=== PATIENT | male | born 1995 | race Caucasian/White ===

== ENCOUNTER 2024-01-01 19:19 | Emergency (ER) | payer SELFPAY ==
[2024-01-01 19:56] LABS: Absolute Basophils 0.1 K/uL (0-0.5); Absolute Eosinophils 0.2 K/uL (0-0.5); Absolute Monocytes 0.7 K/uL (0.1-1.3); Absolute Neutrophil 4.5 K/uL (1.8-8.0); Basophils % 0.7 % (0-1.3); Eosinophils % 2.4 % (0-4.4); Hemoglobin 14.4 g/dL (13.6-17.9); MCH 27.3 pg (27.0-35.0); MCHC 32.8 g/dL (32.0-36.0); MCV 83.3 fL (80-100); MPV 8.1 fL (7.6-11.3); Neutrophils % 59.9 % (41.7-73.7); Nucleated Red Blood Cells % 0.1 % (0-0); Platelets 223 thou/uL (152-406); RBC Red Blood Cell Count 5.29 M/uL (4.33-5.43); Red Cell Distribution Width 13.9 % (12.1-15.2)
[2024-01-01] MEDS ORDERED: MAGNES/ALUMIN/SIMET 30ML UCUP ONE (20:06)
[2024-01-01] MEDS ORDERED: FAMOTIDINE 20 MG/2 ML VIAL IV ONE (20:06)
[2024-01-01] MEDS ORDERED: LIDOCAINE VISCOUS 2% 10ML ORAL SOLN ONE (20:06)
[2024-01-01 20:21] LABS: Albumin 3.9 g/dL (3.4-5.0); Albumin/Globulin Ratio 0.9 (1.1-1.8); Anion Gap 9.5 mEq/L (5.0-15.0); Bilirubin Total 0.5 mg/dL (0.2-1.0); Globulin 4.2 g/dL (2.3-3.5); Potassium 3.5 mEq/L (3.5-5.1); Protein, Total 8.1 g/dL (6.4-8.2); Troponin High Sensitivity 5.7 pg/mL (<58.9)
--- NOTE | 2024-01-01 20:31 | RAD REPORT ---
EXAM DESCRIPTION: US - Abdomen Exam Limited - 01/01/2024 8:03 pm CLINICAL HISTORY: ABD PAIN COMPARISON: No comparisons TECHNIQUE: Sonographic grayscale and color flow images of the right upper abdominal quadrant were o btained. FINDINGS: The gallbladder demonstrates no gallstones. No pericholecystic fluid or gallbladder wall t hickening. The common bile duct is normal measuring 1 mm. The liver demonstrates no findings of intrahepatic biliary dilatation. IMPRESSION: Unremarkable right upper quadrant ultrasound.
--- NOTE | 2024-01-01 21:03 | RAD REPORT ---
EXAM DESCRIPTION: Shefali Single View01/01/2024 8:26 pm CLINICAL HISTORY: CHEST PAIN COMPARISON: No comparisons TECHNIQUE: Portable AP view of the chest. FINDINGS: The lungs are clear. No pneumothorax or effusion. The cardiomediastinal contours are unre markable. IMPRESSION: No acute cardiopulmonary process.
--- NOTE | 2024-01-01 21:11 | EDPHYS ---
Physician Documentation [facility] Name: Harinder Farrell Age: 28 yrs Sex: Male : 1995 Arrival Date: 01/01/2024 Time: 19:19 Bed 20 Private MD: ED Physician Marimar House HPI: 12/31 19:56 This 28 yrs old Male presents to ER via Ambulatory with complaints of Chest Tightness, kb Abdominal Pain. 19:56 Pt is a 28 year old male who presents for chest and abd pain that has been intermittent kb for one week. States the pain started in epigastric area and radiated up through chest. Denies n/v/d, fever, shortness of breath. Historical: - Allergies: 19:33 No Known Allergies; tm6 - PMHx: 19:33 None; tm6 - PSHx: 19:33 None; tm6 - Immunization history:: Client reports having NOT received the Covid vaccine. - Infectious Disease History:: Denies. - Social history:: Smoking status: Patient denies any tobacco usage or history of. Patient/guardian denies using alcohol. ROS: 19:55 Constitutional: As per HPI kb Exam: 19:55 Constitutional: This is a well developed, well nourished patient who is awake, alert, kb and in no acute distress. Head/Face: Normocephalic, atraumatic. ENT: Moist Mucous membranes Cardiovascular: Regular rate Respiratory: Respirations even and unlabored. No increased work of breathing. Talking in full sentences Skin: Warm, dry with normal turgor. Normal color. MS/ Extremity: Pulses equal, no cyanosis. Neurovascular intact. Full, normal range of motion. Neuro: Awake and alert, GCS 15, oriented to person, place, time, and situation. Moves all extremities. Normal gait. 19:55 Abdomen/GI: Inspection: abdomen appears normal, Bowel sounds: normal, Palpation: soft, in all quadrants, mild abdominal tenderness, in the epigastric area, 20:00 ECG was reviewed by the Attending Physician. Vital Signs: 19:29 BP 157 / 93; Pulse 51; Resp 19; Temp 99; Pulse Ox 98% on R/A; tm6 19:37 Weight 51.2 kg; tm6 20:00 BP 131 / 90; Pulse 57; Resp 18; Pulse Ox 99% on R/A; pc2 MDM: 19:27 Patient medically screened. kb 19:56 Data reviewed: vital signs, nurses notes. kb 21:10 Differential diagnosis: abnormal ekg, acute mi, cholelithiasis, cholecystitis, GERD. kb Counseling: I had a detailed discussion with the patient and/or guardian regarding the historical points, exam findings, and any diagnostic results supporting the discharge/admit diagnosis, lab results, radiology results, the need for outpatient follow up, a family practitioner, to return to the emergency department if symptoms worsen or persist or if there are any questions or concerns that arise at home. ED course: court interpreter used. 12/31 19:34 Order name: CBC with Diff; Complete Time: 20:00 kb 12/31 19:34 Order name: CMP; Complete Time: 20:22 kb 12/31 19:34 Order name: Lipase; Complete Time: 20:22 kb 12/31 19:34 Order name: Troponin HS; Complete Time: 20:22 kb 12/31 19:34 Order name: Abdomen Limited US; Complete Time: 21:01 kb 12/31 19:34 Order name: XRAY Chest (1 view); Complete Time: 21:11 kb 12/31 19:34 Order name: IV Saline Lock; Complete Time: 19:48 kb 12/31 19:34 Order name: Labs collected and sent; Complete Time: 19:48 kb 12/31 19:34 Order name: EKG - Nurse/Tech; Complete Time: 19:57 kb EC:00 Rate is 58 beats/min. Rhythm is regular. QRS [place] is Normal. IN interval is normal at kb 132 msec. QRS interval is normal at 94 msec. QT interval is normal at 371 msec. Administered Medications: 20:11 Drug: Famotidine IVP 20 mg IVP once; dilute with 10 mL 0.9% NaCl; give over 2 minutes tm6 Route: IVP; Site: right antecubital; 20:41 Follow up: Response: No adverse reaction pc2 20:11 Drug: GI Cocktail without - (Maalox PO 30 ml, Lidocaine Mucous Membrane 2 % 15 tm6 ml) PO once Route: PO; 20:41 Follow up: Response: No adverse reaction pc2 Disposition Summary: 01/01/24 21:11 Discharge Ordered Notes: Location: Home kb Condition: Stable kb Diagnosis - Chest pain, unspecified kb Followup: kb - With: Emergency Department - When: As needed - Reason: Worsening of condition Followup: kb - With: Private Physician - When: 2 - 3 days - Reason: Recheck today's complaints, Continuance of care, Re-evaluation by your physician Discharge Instructions: - Discharge Summary Sheet kb - Nonspecific Chest Pain, Adult, [id number] kb - Gastroesophageal Reflux Disease, Adult, [id number] kb Forms: - Medication Reconciliation Form kb - Antibiotic Education kb - Prescription Opioid Use kb - Patient Portal Instructions kb - Leadership Thank You Letter kb Signatures: Dispatcher [employer] EDMS Courtney Mallory, MACADAM RAKER-C MACADAM RAKER-Elvira Zacarias RN RN tm6 Mayela Unger RN pc2 Corrections: (The following items were deleted from the chart) 19:35 19:35 Abdomen Limited+US.RAD.BRZ ordered. EDMS EDMS 19:35 19:35 Chest Single View+RAD.RAD.BRZ ordered. EDMS EDMS 19:35 19:33 Allergies: No Known Allergies; tm6 tm6
--- NOTE | 2024-01-01 21:11 | ER ---
Nurse's Notes [facility] Name: Harinder Farrell Age: 28 yrs Sex: Male : 1995 Arrival Date: 01/01/2024 Time: 19:19 Bed 20 Private MD: Diagnosis: Chest pain, unspecified Presentation: 12/31 19:29 Chief complaint: Patient states: chest pain and abdominal pain. When I get too excited, tm6 the area around my belly button hurts and I don't feel well. This has been going on for 1 week. Coronavirus screen: At this time, the client does not indicate any symptoms associated with coronavirus-19. Ebola Screen: Patient negative for fever greater than or equal to 101.5 degrees Fahrenheit, and additional compatible Ebola Virus Disease symptoms Patient denies exposure to infectious person. Patient denies travel to an Ebola-affected area in the 21 days before illness onset. No symptoms or risks identified at this time. Initial Sepsis Screen: Does the patient meet any 2 criteria? No. Patient's initial sepsis screen is negative. Does the patient have a suspected source of infection? No. Patient's initial sepsis screen is negative. Risk Assessment: Do you want to hurt yourself or someone else? Patient reports no desire to harm self or others. Onset of symptoms was December 25, 2023. 19:29 Method Of Arrival: Ambulatory tm6 19:29 Acuity: ARAVIND 3 tm6 Triage Assessment: 19:29 General: Appears uncomfortable, Behavior is calm, cooperative. Pain: Complains of pain tm6 in chest and abdomen. EENT: No signs and/or symptoms were reported regarding the EENT system. Neuro: Level of Consciousness is awake, alert, obeys commands, Oriented to person, place, time, situation. Cardiovascular: Reports chest pain, Patient's skin is warm and dry. Respiratory: Airway is patent Respiratory effort is even, unlabored, Respiratory pattern is regular, symmetrical. GI: Abdomen is flat, non-distended, Reports upper abdominal pain. : No signs and/or symptoms were reported regarding the genitourinary system. Derm: No signs and/or symptoms reported regarding the dermatologic system. Musculoskeletal: No signs and/or symptoms reported regarding the musculoskeletal system. Historical: - Allergies: 19:33 No Known Allergies; tm6 - PMHx: 19:33 None; tm6 - PSHx: 19:33 None; tm6 - Immunization history:: Client reports having NOT received the Covid vaccine. - Infectious Disease History:: Denies. - Social history:: Smoking status: Patient denies any tobacco usage or history of. Patient/guardian denies using alcohol. Screenin:25 [facility] ED Fall Risk Assessment (Adult) History of falling in the last 3 months, pc2 including since admission No falls in past 3 months (0 pts) Confusion or Disorientation No (0 pts) Intoxicated or Sedated No (0 pts) Impaired Gait No (0 pts) Mobility Assist Device Used No (0 pt) Altered Elimination No (0 pt) Score/Fall Risk Level 0 - 2 = Low Risk Oriented to surroundings, Maintained a safe environment, Hourly rounding (assess needs \T\ fall precautionary measures) done. Abuse screen: Denies threats or abuse. Denies injuries from another. Nutritional screening: No deficits noted. Tuberculosis screening: No symptoms or risk factors identified. Assessment: 19:58 General: Appears in no apparent distress. Behavior is calm, cooperative, appropriate pc2 for age. Neuro: Level of Consciousness is awake, alert, obeys commands, Oriented to person, place, time, situation. Cardiovascular: Reports chest pain, Patient's skin is warm and dry. Rhythm is sinus bradycardia Chest pain began 1week ago, intermittent. Respiratory: Airway is patent Respiratory effort is even, unlabored, Respiratory pattern is regular, symmetrical. GI: Reports lower abdominal pain, pain around umbilical cord. : No signs and/or symptoms were reported regarding the genitourinary system. EENT: No signs and/or symptoms were reported regarding the EENT system. Derm: No signs and/or symptoms reported regarding the dermatologic system. Musculoskeletal: No signs and/or symptoms reported regarding the musculoskeletal system. 19:58 Pain: Pain does not radiate. Pain began 1 WEEK AGO. pc2 Vital Signs: 19:29 BP 157 / 93; Pulse 51; Resp 19; Temp 99; Pulse Ox 98% on R/A; tm6 19:37 Weight 51.2 kg; tm6 20:00 BP 131 / 90; Pulse 57; Resp 18; Pulse Ox 99% on R/A; pc2 ED Course: 19:24 Patient arrived in ED. gm2 19:26 Courtney Mallory FNP-C is [facility]. kb 19:26 Marimar House MD is Attending Physician. kb 19:29 Arm band placed on left wrist. tm6 19:32 Triage completed. tm6 19:47 Patient has correct armband on for positive identification. Placed in gown. Bed in low tl4 position. Call light in reach. Side rails up X 1. Provided Education on: call cee, ed process. Client placed on continuous cardiac and pulse oximetry monitoring. NIBP monitoring applied. electrical installation supervisor on. Door closed. Noise minimized. Moved to private room. 19:47 Initial lab(s) drawn, by me, sent to lab. Inserted saline lock: 22 gauge in right tl4 antecubital area, using aseptic technique. Blood collected. Flushed with 10 mL NS. Patient maintains SpO2 saturation greater than 95% on room air. 19:48 Troponin HS Sent. tl4 19:48 CBC with Diff Sent. tl4 19:48 Lipase Sent. tl4 19:48 CMP Sent. tl4 19:57 EKG done, by ED staff, reviewed by Courtney LEONE. tl4 20:05 Mayela Unger, RN is Primary Nurse. pc2 20:05 Abdomen Limited US In Process Unspecified. EDMS 20:25 No provider procedures requiring assistance completed. pc2 20:28 XRAY Chest (1 view) In Process Unspecified. EDMS 21:21 IV discontinued, intact, bleeding controlled, No redness/swelling at site. Pressure pc2 dressing applied. Administered Medications: 20:11 Drug: Famotidine IVP 20 mg IVP once; dilute with 10 mL 0.9% NaCl; give over 2 minutes tm6 Route: IVP; Site: right antecubital; 20:41 Follow up: Response: No adverse reaction pc2 20:11 Drug: GI Cocktail without - (Maalox PO 30 ml, Lidocaine Mucous Membrane 2 % 15 tm6 ml) PO once Route: PO; 20:41 Follow up: Response: No adverse reaction pc2 Medication: 20:25 VIS not applicable for this client. pc2 Outcome: 21:11 Discharge ordered by . kb 21:21 Discharged to home ambulatory, pc2 21:21 Condition: stable 21:21 Discharge instructions given to patient, Instructed on discharge instructions, follow up and referral plans. Demonstrated understanding of instructions, follow-up care, 21:22 Patient left the ED. pc2 Signatures: Dispatcher [employer] EDMS Courtney Mallory, VASU CARMONAP-Myrna Ospina gm2 Elvira Kelly RN RN tm6 Angel Baugh RN RN tl4 Mayela Unger, RN RN pc2 Corrections: (The following items were deleted from the chart) 19:35 19:33 Allergies: No Known Allergies; tm6 tm6
[2024-01-01 21:26] VITALS: TEMP 99
[2024-01-01 21:28] VITALS: BP 131/90; O2SAT 99
--- NOTE | 2024-01-02 17:46 | EKG ---
Test Date: 2024-01-01 Test Time: 19:53:28 First Assist: TL MEASUREMENT RESULTS: Intervals: Rate: 58 MT: 132 QRSD: 94 QT: 378 QTc: 371 [place]: P: 10 MT: 132 QRS: 86 T: 6 INTERPRETIVE STATEMENTS: Sinus bradycardia Otherwise normal ECG No previous ECG available for comparison Electronically Signed On 01-02-24 17:44:21 CDT by Seun Mccartney
== END 2024-01-01 21:22 | disposition home or self-care (01) ==
LOC: ER 19:19
DX: R07.89 Other chest pain (principal); R10.13 Epigastric pain
CPT/HCPCS: 36415; 71045; 76705; 80053; 83690; 84484; 85025; 93005